=== PATIENT | female | born 1965 | race Caucasian/White ===

== ENCOUNTER 2017-10-27 12:42 | Outpatient (CLI) ==
[2015-07-31 10:04] VITALS: BMI 18.3
--- NOTE | 2017-10-27 13:13 | DI ---
Exam: Two x-rays of the chest. Comparison: None available. Reason for exam: Acute bronchitis. FINDINGS: No pneumothorax, pleural effusion, or focal consolidation. The cardiac silhouette is not enlarged. The imaged osseous structures appear grossly unremarkable without acute fracture. Impression: No acute cardiopulmonary process.
== END 2017-10-27 12:43 | disposition home or self-care (01) ==
LOC: RAD 12:42
PROVIDERS: ATTEND Nurse Practitioner
DX: J01.90 Acute sinusitis, unspecified (principal); J20.9 Acute bronchitis, unspecified; D72.829 Elevated white blood cell count, unspecified
CPT/HCPCS: 36415; 80053; 85025; 85651

== ENCOUNTER 2017-10-29 09:26 | Outpatient (CLI) ==
[2015-07-31 10:04] VITALS: BMI 18.3
== END 2017-10-29 09:27 | disposition home or self-care (01) ==
LOC: LAB 09:26
PROVIDERS: ATTEND Nurse Practitioner
DX: D72.829 Elevated white blood cell count, unspecified (principal)
CPT/HCPCS: 36415; 85025; 85651